=== PATIENT | female | born 1990 | race Caucasian/White ===

== ENCOUNTER 2019-04-11 19:21 | Emergency (ER) | payer OTHER ==
--- OUTSIDE RECORDS SUMMARY | 2019-04-11 19:46 | XMS REPORT | Continuity of Care Document ---
:1990 External Reference #:[id number] Author Name Montserrat Adams MD, PHD Address [address], [address] [place] [address] Care Team Providers Name Role Phone Montserrat Adams MD, PHD Care Team Information Transportation Assistant Unavailable Montserrat Adams MD, PHD Primary Care Physician Unavailable Payers Date Identification Numbers Payment Provider Subscriber Effective: 2009 Policy Number: [id number] [employer] Priscilla Garrett PayID: [id number] [address] [place] [address] Problems Active Problems Provider Date Disease of blood AND/OR blood-forming Iesha Dixon DO Onset: 04/22/2015 organ Multiple joint pain Iesha Dixon DO Onset: 06/07/2015 Obesity Iesha Dixon DO Onset: 06/07/2015 Essential thrombocythemia Greg Vernon M.D. Onset: 02/09/2016 Polycystic ovaries Greg Vernon M.D. Onset: 02/09/2016 Bipolar disorder Jacinta Barrios, PNP-BC, PRECISION MACHINIST, Onset: 07/10/2018 Ibclc Dysuria Montserrat Adams MD, PHD Onset: 08/28/2018 Increased frequency of urination Montserrat Adams MD, PHD Onset: 08/28/2018 Urinary tract infectious disease Montserrat Adams MD, PHD Onset: 11/11/2018 Upper respiratory tract infection due Montserrat Adams MD, PHD Onset: 2018 to Influenza Migraine Montserrat Adams MD, PHD Onset: 01/22/2019 Other migraine, not intractable, Montserrat Adams MD, PHD Onset: 01/22/2019 without status migrainosus Montserrat Adams MD, PHD Onset: 01/22/2019 Family History Date Family Member(s) Observation Comments Father Heart Disease Father 45 Mother 46 Siblings 5 Grandmother Breast Cancer Grandmother Heart Disease Social History Type Date Description Comments Sex Unknown Marital Status Lives With Diet Patient follows no dietary restrictions Occupation Disabled for bipolar disorder Abuse No history of abuse Tobacco Use Start: Unknown Never Smoked Cigarettes ETOH Use Denies alcohol use Recreational Drug Use Denies Drug Use Tobacco Use Start: Unknown Patient has never smoked Smoking Status Reviewed: 03/26/19 Patient has never smoked Enjoy Exercising Patient enjoys exercising Tattoo/Piercing Tattoo arm Tattoo/Piercing Pierced ears Currently Active Patient is currently sexually active Age [address] [place] 18 Years Old # Partners in a Lifetime 1 # Partners in a Lifetime Has been with current partner for 2 years STD's No STD History Allergies, Adverse Reactions, Alerts Active Allergies Reaction Severity Comments Date Advil 08/23/2015 Propranolol 09/19/2018 Medications Active Medications SIG Qnty Indications Ordering Date Provider Famotidine 1 tab by mouth 60tabs Montserrat Adams, 03/13/2019 20mg twice a day as , PHD Tablets needed for stomach pain Magnesium Gluconate 1 tab by mouth 90tabs G43.909 Montserrat Adams, 2018 every day MD PHD 500mg Tablets Co Q-10 Maximum 1 caps by mouth 90caps G43.909 Montserrat Adams, 01/22/2019 Strength every day , PHD 400mg Capsules Vitamin D3 Adult 4 tab by mouth 120units Montserrat Adams, 01/22/2019 Gummies every day , PHD 1000Unit Chewtabs [facility] 2 by mouth every 180units Z33.1 Montserrat Adams, 01/22/2019 Gummy/Dha/Folic day , PHD Acid 0.4-113.5mg Chewtabs Chromium Picolinate 2 tabs by mouth 60tabs E28.2 Montserrat Adams, 2018 Fortified every morning , PHD 200mcg every evening with Tablets 16 oz of water Mucinex 1 tab by mouth 30tabs J06.9 Angie Montserrat, 10/24/2018 600mg twice a day , PHD Tablets ER 12HR congestion take with lots of fluids J11.1 Aspirin Enteric 1 tabs by mouth 90tabs D68.69 Montserrat Adams, 09/19/2018 Coated Adult Low every day after , PHD Strength meals 81mg Tablets DR Teri Garcia 2 inhalation every 60units J45.31 Montserrat Adams, 09/19/2018 day at bedtime , PHD 200-25mcg/Inh Aerosol Excedrin Migraine 1 tab by mouth first 30tabs G43.809 Montserrat Adams, 04/2018 sign of migraine , PHD [phone] Tablets Flonase Allergy 1 spray each nares 1units J45.31 Montserrat Adams, 2017 Relief every day , PHD 50mcg/Act Suspension Ventolin HFA 1-2 puffs every 4 18gm J45.20 Montserrat Adams, 07/10/2018 hours as needed , PHD 108(90Base) mcg/Act Aerosol Ibuprofen 1 tab by mouth three 90tabs M54.5 Jacinta Barrios, 06/19/2018 800mg times a day as PNP-BC, PRECISION MACHINIST, Ibclc Tablets needed G43.109 Aerochamber Plus as directed 1units J45.20 Jacinta Barrios, 07/18/2017 Misc PNP-BC, PRECISION MACHINIST, Ibclc Metformin HCL ER one tab by mouth 3x 90tabs E28.2 Jacinta Barrios, 500mg daily PNP-BC, PRECISION MACHINIST, Ibclc Tablets ER 24HR Prental Vitamin 1 tab po daily Unknown Low Dose Naltrexone one po daily at Unknown bedtime for fertility tx History Medications Amoxicillin 1 tab by mouth 14tabs J01.90 Angie, 02/09/2019 - 875mg twice a day MD Montserrat, Unknown Tablets PHD Aspirin 81 Low Dose 6 tab by mouth 90units G43.909 Angie, 01/22/2019 - first sign of MD Montserrat, 02/09/2019 81mg Chewtabs migraine PHD Vitamin B-6 1 tab by mouth 30tabs G43.909 Angie, 01/22/2019 - 25mg every day MD Montserrat, Unknown Tablets PHD Phentermine HCL 1 by mouth every 30caps E28.2 Angie, 12/22/2018 - 37.5mg day as needed MD Montserrat, 01/22/2019 Capsules hold if ill. PHD Prednisone 1 tab by mouth 5tabs J45.31 Angie, 2018 - 20mg Tablets every day every MD Montserrat, 02/09/2019 morning PHD Azithromycin 2 tabs the first 6tabs J45.31 Angie, 2018 - 250mg day then 1 tab MD Montserrat, 01/22/2019 Tablets daily for 4 more PHD days [facility] 2 by mouth every 180units Angie, 11/20/2018 - Gummy/Dha/Folic Acid day MD Montserrat, 01/22/2019 PHD 0.4-113.5mg Chewtabs Chromium Picolinate 1 tab by mouth 30tabs Angie, 11/20/2018 - every day MD Montserrat, 12/22/2018 500mcg Tablets PHD Vitamin D3 Adult 4 tab by mouth 120units Angie, 11/20/2018 - Gummies every day MD Montserrat, 01/22/2019 1000Unit PHD Chewtabs Augmentin 1 tab by mouth 14tabs N39.0 Angie, 11/11/2018 - 875-125mg twice a day MD Montserrat, 11/20/2018 Tablets PHD Zantac 150 Maximum 1 tab by mouth 60tabs R11.0 Angie, 11/11/2018 - Strength twice a day as MD Montserrat, 2018 150mg Tablets needed PHD Zofran 1 tab by mouth 14tabs R11.0 Angie, 11/11/2018 - 4mg Tablets three times a day MD Montserrat, 2018 as needed for PHD nausea Diflucan 1 tab by mouth as 1tabs R30.0 Angie, 11/06/2018 - 150mg Tablets once MD Montserrat, 11/11/2018 PHD Amoxicillin 1 tab by mouth 14tabs J06.9 Angie, 10/24/2018 - 875mg twice a day MD Montserrat, 11/11/2018 Tablets PHD Mometasone Furoate 2 puffs twice a 1units J45.31 Angie, 09/19/2018 - day MD Montserrat, 09/19/2018 50mcg/Act Suspension PHD Vitamin D 1 tab by mouth 14caps E55.9 Mcgregor, 09/19/2018 - (Ergocalciferol) once a week for 4 MD Montserrat, 01/22/2019 weeks PHD [id number] Capsules Gabapentin 1-2 tab by mouth 60caps M54.5 Mcgregor, 09/11/2018 - 300mg at bedtime MD Montserrat, 01/22/2019 Capsules PHD Cyclobenzaprine HCL 1/2-1 tab by 14tabs M54.5 Angie, 09/11/2018 - mouth at bedtime MD Montserrat, 01/22/2019 10mg Tablets as needed PHD Fluconazole 1 by mouth once 1tabs R30.0 Mcgregor, 08/28/2018 - 150mg can repeat in 1 MD Montserrat, 09/11/2018 Tablets week PHD Amoxicillin 1 tab by mouth 20tabs H66.92 Jacinta Barrios, 07/10/2018 - 500mg twice a day for PNP-BC, PRECISION MACHINIST, 07/20/2018 Tablets 10 days Ibclc Pseudoephedrine HCL take 2 tabs every 90tabs J01.90 Jacinta Barrios, 2017 - 4 hours as needed PNP-BC, PRECISION MACHINIST, 08/28/2018 30mg Tablets Ibclc Montelukast Sodium 1 by mouth every 90tabs J45.20 Jacinta Barrios, 2017 - 10mg day PNP-BC, PRECISION MACHINIST, 08/28/2018 Tablets Ibclc No Active Medications Unknown 03/27/2018 - 03/27/2018 Naproxen 500 mg by mouth 60tabs M54.5 Greg Vernon, 03/27/2018 - 500mg Tablets every 12 hours as M.D. 06/19/2018 needed pain Cyclobenzaprine HCL 1-2 tabs by mouth 30tabs M54.5 Greg Vernon, 2017 - 5mg every night at M.D. 08/28/2018 Tablets bedtime Magnesium Oxide 1 by mouth every 30tabs G43.109 Alyx, 01/23/2018 - 400mg day Jenniferchetek, 03/27/2018 Tablets PRECISION MACHINIST Vitamin B-2 1 by mouth every 100tabs G43.109 Clune, 01/23/2018 - 100mg day Jenniferchetek, 03/27/2018 Tablets PRECISION MACHINIST Hydroxyzine HCL 1-2 tabs by mouth 45tabs F43.0 Clune, 12/27/2017 - 25mg three times a day Jenniferchetek, 03/27/2018 Tablets as needed anxiety PRECISION MACHINIST Ibuprofen 1 tab by mouth 30tabs A08.39 Gerg Vernon, 12/27/2017 - 600mg Tablets every 6 hours as M.D. 03/27/2018 needed Penicillin V 1 tab PO bid x 10 20tabs J02.9 Greg Vernon, 10/18/2017 - Potassium days M.D. 12/27/2017 500mg Tablets Cetirizine HCL 1 by mouth every 30tabs J30.9 Jacinta Barrios, 07/18/2017 - 10mg day PNP-BC, PRECISION MACHINIST, 12/27/2017 Tablets Ibclc Pseudoephedrine HCL 1 tab po q4 hours 60tabs J30.9 Jacinta Barrios, 2016 - as needed for PNP-BC, PRECISION MACHINIST, 12/27/2017 30mg Tablets congestion Ibclc Ventolin HFA 1-2 puffs every 4 8gm J45.20 Jacinta Barrios, 07/18/2017 - hours as needed PNP-BC, PRECISION MACHINIST, 12/27/2017 108(90Base) mcg/Act Ibclc Aerosol Rizatriptan Benzoate 1 tab PO, repeat 14tabs G43.109 Greg Vernon, 2016 - after 2 hours if M.D. 01/23/2018 10mg Tablets significant relief is not attained Sumatriptan Succinate take 1 pill at 14tabs G43.109 Greg Vernon, 2016 - headache onset M.D. 02/12/2017 100mg Tablets and another pill 2 hours later if pain not relieved. max 200mg/day Bupropion HCL ER (SR) 1 by mouth every 30tabs E66.9 Greg Vernon, 2016 - day M.D. 01/18/2017 150mg Tablets ER 12HR Pseudoephedrine HCL 1 tabs by mouth 14tabs R09.81 Greg Vernon, 11/08/2016 - q6 as needed M.D. 12/14/2016 30mg Tablets BD Pen place on flexpen 30units E28.2 Greg Vernon, 11/08/2016 - Needle/Migdalia/Ultra for injection M.D. 06/27/2017 Fine/32G X 4mm once daily. one 32G X 4 time use mm Misc Victoza 0.6mg subq once 18ml E28.2 Greg Vernon, 11/08/2016 - 18mg/3ML daily, can M.D. 12/14/2016 Solution Pen-Inject titrate up as instructed E66.9 No Active Medications Unknown 11/08/2016 - 11/08/2016 [facility] Ranitidine Take One Tablet 60tabs Greg Vernon, 10/30/2016 - 75mg Tablets By Mouth Twice A M.D. 11/08/2016 Day 19 Take 1 Tablet By 90units Greg Vernon, 10/30/2016 - Chewtabs Mouth Every Day M.D. 11/08/2016 Vascepa 2 tab by mouth 120caps Greg Vernon, 09/19/2016 - 1gm Capsules twice a day with M.D. 09/20/2016 meals mdd 4gm/day [place]-3 1 tab by mouth 30caps Greg Vernon, 09/14/2016 - 1400mg Capsules every daily M.D. 09/19/2016 No Active Medications Unknown 07/24/2016 - 07/24/2016 Vitamin D3 1 cap by mouth 8caps Greg Vernon, 07/24/2016 - [id number] Capsules every week x 8 M.D. 09/13/2016 weeks Amoxicillin 1 tab by mouth 20tabs J01.90 Greg Vernon, 05/25/2016 - 500mg Tablets twice a day x 10 M.D. 07/24/2016 days No Active Medications Unknown 02/09/2016 - 05/25/2016 Vitamin D3 1 cap by mouth 8caps E55.9 Greg Vernon, 11/10/2015 - [id number] Capsules every week x 8 M.D. 02/09/2016 weeks Proair HFA 1 puff every 4 1units R07.9 Greg Vernon, 11/10/2015 - 108(90Base) mcg/Act hours as needed M.D. 02/09/2016 Aerosol Naproxen 500 mg by mouth 20tabs Greg Vernon, 11/10/2015 - 500mg Tablets every 12 hours M.D. 11/10/2015 as needed Ranitidine HCL take one tablet 60tabs K21.9 Greg Vernon, 10/26/2015 - 75mg Tablets by mouth twice a M.D. 02/09/2016 day Complete 1 by mouth every 90tabs Greg Vernon, 08/23/2015 - 14-0.4mg day M.D. 10/26/2015 Tablets Proair HFA 1 puff every 4 1units 493.90 Greg Vernon, 06/09/2015 - 108(90Base) mcg/Act hours as needed M.D. 10/26/2015 Aerosol Lovenox 1 injection Unknown - 30mg/0.3ML Solution daily 02/09/2019 Medroxyprogesterone take 1 tablet by Unknown - Acetate mouth once daily 01/22/2019 10mg Tablets for 10 days Levothyroxine Sodium one tab po once Unknown - 75mcg a day 08/28/2018 Tablets Ondansetron HCL as needed Unknown - 4mg Tablets 11/11/2018 Prednisone one tab po twice KilBogdan pastor - 5mg Tablets daily 08/28/2018 Ondansetron HCL 1 tab every 6hr 12tabs Charles - 4mg Tablets as needed for Camille Lund MD 03/27/2018 nausea [facility] Acid Controller Charles, - Maximum Strength Camille Lund MD 01/23/2018 20mg Tablets Phendimetrazine Tartrate take 1 tablet by Unknown - 35mg mouth two times 12/27/2017 Tablets a day . Cyclessa 0ne daily Unknown - 0.1/0.125/0.15 -0.025 mg 12/27/2017 Tablets Spironolactone 1 by mouh twice Unknown - 25mg Tablets a day 12/27/2017 Metformin HCL 1 tab by mouth Unknown - 500mg Tablets Once a day 12/27/2017 Ondansetron HCL as needed for Charles, - 4mg Tablets nausea Camille Lund MD 06/12/2017 Metoclopramide HCL Unknown - 10mg Tablets 11/08/2016 Medroxyprogesterone Juan CarlosShweta maria - Acetate 11/10/2015 10mg Tablets Vitamin D Unknown - 1000Unit Tablets 10/26/2015 Vitamin D Unknown - 2000Unit Capsules 10/26/2015 Clomid 4 tabs on day Greg Vernon, - 50mg Tablets 3-7 of menses M.D. 08/23/2015 Seroquel Unknown - 05/30/2011 Singulair 1 po qd Unknown - 10mg Tablets 04/22/2015 Medications Administered in Office Medication SIG Qnty Indications Ordering Provider Date Injection Ketorolac Montserrat Adams MD, PHD 02/09/2019 Tromethamine 30 MG/mL (Toradol) Injection Injection Ketorolac Montserrat Adams MD, PHD 10/24/2018 Tromethamine 30 MG/mL (Toradol) Injection Immunizations CPT Code Status Date Vaccine Lot # [id number] Given 06/12/2017 Tdap injection [id number] Given 11/03/2009 flu vaccination 25748 Given 11/03/2009 H1N1 Immuniation Adminstration 50560 Given 11/03/2009 H1N1 Immuniation Adminstration [id number] Refused 06/28/2017 Influenza Vaccine (Fluzone) Age 3 And Older Q2038 Refused 07/24/2016 Influenza Vaccine (Fluzone) Age 3 And Older Vital Signs Date Vital Result Comment 03/26/2019 10:01am BP Systolic 149 mmHg BP Diastolic 95 mmHg Body Temperature 97.3 F Heart Rate 97 /min Respiratory Rate 20 /min Height 71 inches 5'11" Weight 254.00 lb BMI (Body Mass Index) 35.4 kg/m2 BSA (Body Surface Area) 2.33 m2 [place] body weight in kilograms 70 kg O2 % BldC Oximetry 95 % 02/09/2019 3:49pm BP Systolic 112 mmHg BP Diastolic 72 mmHg Body Temperature 97.9 F Heart Rate 107 /min Respiratory Rate 18 /min Height 71 inches 5'11" Weight 250.00 lb BMI (Body Mass Index) 34.9 kg/m2 BSA (Body Surface Area) 2.32 m2 [place] body weight in kilograms 70 kg O2 % BldC Oximetry 99 % 01/22/2019 9:29am BP Systolic 109 mmHg BP Diastolic 85 mmHg Body Temperature 96.7 F Heart Rate 91 /min Respiratory Rate 18 /min Height 71 inches 5'11" Weight 246.00 lb BMI (Body Mass Index) 34.3 kg/m2 BSA (Body Surface Area) 2.30 m2 [place] body weight in kilograms 70 kg O2 % BldC Oximetry 96 % 12/22/2018 11:31am BP Systolic 111 mmHg BP Diastolic 81 mmHg Body Temperature 97.3 F Heart Rate 87 /min Respiratory Rate 20 /min Height 71 inches 5'11" Weight 253.00 lb BMI (Body Mass Index) 35.3 kg/m2 BSA (Body Surface Area) 2.33 m2 [place] body weight in kilograms 70 kg O2 % BldC Oximetry 97 % 2018 1:03pm BP Systolic 134 mmHg BP Diastolic 84 mmHg Body Temperature 97.2 F Heart Rate 108 /min Respiratory Rate 20 /min Height 71 inches 5'11" Weight 250.00 lb BMI (Body Mass Index) 34.9 kg/m2 BSA (Body Surface Area) 2.32 m2 [place] body weight in kilograms 70 kg O2 % BldC Oximetry 96 % 11/20/2018 3:09pm BP Systolic 109 mmHg BP Diastolic 78 mmHg Body Temperature 98.0 F Heart Rate 90 /min Respiratory Rate 18 /min Height 71 inches 5'11" Weight 250.00 lb BMI (Body Mass Index) 34.9 kg/m2 BSA (Body Surface Area) 2.32 m2 [place] body weight in kilograms 70 kg O2 % BldC Oximetry 98 % 11/11/2018 8:53am BP Systolic 121 mmHg BP Diastolic 83 mmHg Body Temperature 99.4 F Heart Rate 108 /min Respiratory Rate 20 /min Height 71 inches 5'11" Weight 252.00 lb BMI (Body Mass Index) 35.1 kg/m2 BSA (Body Surface Area) 2.33 m2 [place] body weight in kilograms 70 kg O2 % BldC Oximetry 97 % 10/24/2018 2:44pm BP Systolic 121 mmHg BP Diastolic 85 mmHg Body Temperature 98.2 F Heart Rate 82 /min Respiratory Rate 20 /min Height 71 inches 5'11" Weight 256.00 lb BMI (Body Mass Index) 35.7 kg/m2 BSA (Body Surface Area) 2.34 m2 [place] body weight in kilograms 70 kg O2 % BldC Oximetry 96 % 09/19/2018 11:02am BP Systolic 131 mmHg BP Diastolic 83 mmHg Body Temperature 97.0 F Heart Rate 106 /min Respiratory Rate 18 /min Height 71 inches 5'11" Weight 253.00 lb BMI (Body Mass Index) 35.3 kg/m2 BSA (Body Surface Area) 2.33 m2 [place] body weight in kilograms 70 kg O2 % BldC Oximetry 96 % 09/11/2018 9:17am BP Systolic 131 mmHg BP Diastolic 84 mmHg Body Temperature 97.0 F Heart Rate 103 /min Respiratory Rate 18 /min Height 71 inches 5'11" Weight 252.00 lb BMI (Body Mass Index) 35.1 kg/m2 BSA (Body Surface Area) 2.33 m2 [place] body weight in kilograms 70 kg O2 % BldC Oximetry 96 % 08/28/2018 3:09pm BP Systolic 123 mmHg BP Diastolic 88 mmHg Body Temperature 97.1 F Heart Rate 91 /min Respiratory Rate 18 /min Height 71 inches 5'11" Weight 251.00 lb BMI (Body Mass Index) 35.0 kg/m2 BSA (Body Surface Area) 2.32 m2 [place] body weight in kilograms 70 kg O2 % BldC Oximetry 98 % 07/10/2018 3:10pm BP Systolic Sitting Left Arm 124 mmHg BP Diastolic Sitting Left Arm 62 mmHg Body Temperature 97.9 F Heart Rate 101 /min Weight 251.50 lb O2 % BldC Oximetry 98 % 06/19/2018 11:37am BP Systolic Sitting Right Arm 108 mmHg BP Diastolic Sitting Right Arm 70 mmHg Body Temperature 97.1 F Heart Rate 84 /min Weight 248.25 lb O2 % BldC Oximetry 98 % 03/27/2018 9:29am BP Systolic Sitting Right Arm 112 mmHg BP Diastolic Sitting Right Arm 70 mmHg Body Temperature 97.1 F Heart Rate 94 /min Weight 253.50 lb O2 % BldC Oximetry 97 % 01/23/2018 10:20am BP Systolic Sitting Left Arm 114 mmHg BP Diastolic Sitting Left Arm 72 mmHg Heart Rate 80 /min Respiratory Rate 18 /min Height 71 inches 5'11" Weight 252.00 lb BMI (Body Mass Index) 35.1 kg/m2 BSA (Body Surface Area) 2.33 m2 [place] body weight in kilograms 70 kg 12/27/2017 10:18am BP Systolic Sitting Right Arm 120 mmHg BP Diastolic Sitting Right Arm 72 mmHg Body Temperature 97.1 F Heart Rate 87 /min Weight 250.25 lb O2 % BldC Oximetry 97 % 10/18/2017 1:06pm BP Systolic 112 mmHg BP Diastolic 74 mmHg Body Temperature 97.8 F Heart Rate 116 /min Height 71 inches 5'11" Weight 245.00 lb BMI (Body Mass Index) 34.2 kg/m2 BSA (Body Surface Area) 2.30 m2 [place] body weight in kilograms 70 kg O2 % BldC Oximetry 98 % 07/18/2017 2:19pm BP Systolic 102 mmHg BP Diastolic 68 mmHg Body Temperature 98.2 F Height 71 inches 5'11" Weight 242.00 lb BMI (Body Mass Index) 33.7 kg/m2 BSA (Body Surface Area) 2.29 m2 [place] body weight in kilograms 70 kg O2 % BldC Oximetry 98 % 06/28/2017 9:41am BP Systolic 122 mmHg BP Diastolic 82 mmHg Body Temperature 96.4 F Heart Rate 92 /min Height 71 inches 5'11" Weight 247.00 lb BMI (Body Mass Index) 34.4 kg/m2 BSA (Body Surface Area) 2.31 m2 [place] body weight in kilograms 70 kg O2 % BldC Oximetry 96 % 06/12/2017 11:31am BP Systolic Sitting Left Arm 120 mmHg BP Diastolic Sitting Left Arm 76 mmHg Heart Rate 80 /min Respiratory Rate 20 /min Height 71 inches 5'11" Weight 250.25 lb BMI (Body Mass Index) 34.9 kg/m2 BSA (Body Surface Area) 2.32 m2 [place] body weight in kilograms 70 kg Last Menstrual Period [id number] 04/23/2017 9:41am BP Systolic 111 mmHg BP Diastolic 72 mmHg Body Temperature 96.9 F Heart Rate 95 /min Height 71 inches 5'11" Weight 261.00 lb BMI (Body Mass Index) 36.4 kg/m2 BSA (Body Surface Area) 2.36 m2 [place] body weight in kilograms 70 kg 02/19/2017 8:56am BP Systolic Sitting Left Arm 122 mmHg BP Diastolic Sitting Left Arm 68 mmHg Body Temperature 96.6 F Height 71 inches 5'11" Weight 263.25 lb BMI (Body Mass Index) 36.7 kg/m2 BSA (Body Surface Area) 2.37 m2 01/18/2017 10:02am BP Systolic Sitting Left Arm 116 mmHg BP Diastolic Sitting Left Arm 64 mmHg Body Temperature 97.5 F Height 71 inches 5'11" Weight 262.50 lb BMI (Body Mass Index) 36.6 kg/m2 BSA (Body Surface Area) 2.37 m2 12/14/2016 9:12am BP Systolic Sitting Resting Right Arm 122 mmHg BP Diastolic Sitting Resting Right Arm 90 mmHg Body Temperature 97.4 F Heart Rate 95 /min Respiratory Rate 20 /min Height 71 inches 5'11" Weight 261.00 lb BMI (Body Mass Index) 36.4 kg/m2 BSA (Body Surface Area) 2.36 m2 Last Menstrual Period [id number] O2 % BldC Oximetry 98 % 11/08/2016 3:24pm BP Systolic Sitting Right Arm 126 mmHg BP Diastolic Sitting Right Arm 76 mmHg Body Temperature 98.2 F Height 71 inches 5'11" Weight 255.12 lb BMI (Body Mass Index) 35.6 kg/m2 BSA (Body Surface Area) 2.34 m2 [place] body weight in kilograms 70 kg 09/26/2016 1:09pm Height 69 inches 5'9" Weight 257.00 lb BMI (Body Mass Index) 37.9 kg/m2 BSA (Body Surface Area) 2.30 m2 [place] body weight in kilograms 66 kg 09/13/2016 3:47pm BP Systolic Sitting Right Arm 140 mmHg BP Diastolic Sitting Right Arm 80 mmHg Body Temperature 97.4 F Height 71 inches 5'11" Weight 261.12 lb BMI (Body Mass Index) 36.4 kg/m2 BSA (Body Surface Area) 2.36 m2 [place] body weight in kilograms 70 kg 07/24/2016 9:19am BP Systolic Sitting Left Arm 124 mmHg BP Diastolic Sitting Left Arm 92 mmHg Heart Rate 94 /min Respiratory Rate 20 /min Height 71 inches 5'11" Weight 262.00 lb BMI (Body Mass Index) 36.5 kg/m2 BSA (Body Surface Area) 2.36 m2 [place] body weight in kilograms 70 kg 05/25/2016 9:44am BP Systolic Sitting Left Arm 118 mmHg BP Diastolic Sitting Left Arm 66 mmHg Body Temperature 97.5 F Heart Rate 72 /min Respiratory Rate 20 /min Height 71 inches 5'11", As per patient Weight 258.25 lb BMI (Body Mass Index) 36.0 kg/m2 BSA (Body Surface Area) 2.35 m2 [place] body weight in kilograms 70 kg Last Menstrual Period [id number] 02/09/2016 10:27am BP Systolic Sitting Left Arm 108 mmHg BP Diastolic Sitting Left Arm 66 mmHg Height 69 inches 5'9" Weight 253.00 lb BMI (Body Mass Index) 37.4 kg/m2 BSA (Body Surface Area) 2.28 m2 11/10/2015 10:55am BP Systolic 128 mmHg BP Diastolic 74 mmHg Body Temperature 97.9 F Heart Rate 102 /min Respiratory Rate 22 /min Height 69 inches 5'9" Weight 257.00 lb BMI (Body Mass Index) 37.9 kg/m2 BSA (Body Surface Area) 2.30 m2 Last Menstrual Period [id number] O2 % BldC Oximetry 98 % 10/26/2015 9:21am BP Systolic 114 mmHg BP Diastolic 76 mmHg Body Temperature 97.6 F Height 69 inches 5'9" Weight 256.00 lb BMI (Body Mass Index) 37.8 kg/m2 BSA (Body Surface Area) 2.29 m2 08/23/2015 2:08pm BP Systolic 118 mmHg BP Diastolic 66 mmHg Height 69 inches 5'9" Weight 255.12 lb BMI (Body Mass Index) 37.7 kg/m2 BSA (Body Surface Area) 2.29 m2 08/02/2015 9:35am Height 69 inches 5'9" Weight 252.00 lb BMI (Body Mass Index) 37.2 kg/m2 BSA (Body Surface Area) 2.28 m2 06/09/2015 9:15am BP Systolic 124 mmHg BP Diastolic 76 mmHg Heart Rate 72 /min Respiratory Rate 18 /min Height 69 inches 5'9" Weight 248.00 lb BMI (Body Mass Index) 36.6 kg/m2 BSA (Body Surface Area) 2.26 m2 06/07/2015 8:44am BP Systolic Sitting Left Arm 132 mmHg BP Diastolic Sitting Left Arm 85 mmHg Heart Rate 90 /min Respiratory Rate 18 /min Height 71 inches 5'11" Weight 249.00 lb BMI (Body Mass Index) 34.7 kg/m2 BSA (Body Surface Area) 2.31 m2 05/02/2015 11:47am BP Systolic Sitting Left Arm 124 mmHg BP Diastolic Sitting Left Arm 67 mmHg Body Temperature 97.3 F Heart Rate 99 /min Respiratory Rate 20 /min Weight 248.00 lb O2 % BldC Oximetry 99 % 04/22/2015 1:03pm BP Systolic Sitting Left Arm 128 mmHg BP Diastolic Sitting Left Arm 72 mmHg Body Temperature 97.7 F Heart Rate 89 /min Respiratory Rate 20 /min Height 69.25 inches 5'9.25" Weight 248.00 lb BMI (Body Mass Index) 36.4 kg/m2 BSA (Body Surface Area) 2.27 m2 O2 % BldC Oximetry 97 % 05/30/2011 3:19pm BP Systolic Sitting Left Arm 118 mmHg BP Diastolic Sitting Left Arm 84 mmHg Heart Rate 94 /min Respiratory Rate 16 /min Height 71 inches 5'11" Last Menstrual Period [id number] 02/20/2010 8:47am Height 71 inches 5'11" Weight 213.00 lb BMI (Body Mass Index) 29.7 kg/m2 BSA (Body Surface Area) 2.17 m2 01/29/2008 1:41pm Height 68.5 inches 5'8.50" Weight 217.00 lb Results Test Date Facility Test Result H/L Range Note Laboratory test 11/14/2018 [facility] Rapid Strep POSITIVE Abnormal Negative 1 , [address] [place], [place] [id number] [phone] Urine Dipstick 11/06/2018 [facility] Ua Color Yellow Yellow Ua Clarity Clear Clear Ua Leuko 2+ High Negative Ua Nitrite Negative Negative Ua Urobilinogen Negative Low 0.2 - 1.0 E.U./dL Ua Protein Negative Negative Ua PH 6.0 Low 6.5-7.5 Ua Blood Negative Negative Ua Specific [place] 1.025 1.010-1.030 Ua Ketones Negative Negative Ua Bilirubin Negative Negative Ua Glucose Negative Negative Urine Culture 11/06/2018 [facility] Urine STREP. Abnormal 3, [address] Culture AGALACTIA <[place] [address] NOTE> [phone] Quantity > 100,000 CFU/mL 5 Recommended Therapy: PENICILLIN OR AM <SEE NOTE> 6 Urine Culture MIXED URETHRAL F <SEE NOTE> 7 Quantity 10,000 - 50,000 <SEE NOTE> 8 Ua RFX Micro & Culture 11/06/2018 [facility] Urine Color YELLOW Yellow II [address] [place], [place] [id number] [phone] Urine Clarity SL CLOUDY Clear Urine Glucose - Dipstick NEGATIVE mg/dL Negative Urine Bilirubin - Dipstick NEGATIVE Negative Urine Ketone NEGATIVE mg/dL Negative Urine Specific [place] 1.020 N 1.010-1.030 Urine Blood NEGATIVE Negative Urine PH 6.0 Low 6.5-7.5 Urine Protein - Dipstick NEGATIVE mg/dL Negative Urine Urobilinogen - Dipstick 0.2 E.U./dL N 0.2-1.0 Urine Nitrite - Dipstick NEGATIVE Negative Urine Leuk Esterase SMALL Abnormal Negative Urine RBC 0-2 rbc/hpf 0-2 Urine WBC 2-5 wbc/hpf 0-7 Urine Epithelial Cells FEW /lpf None Seen Urine Bacteria FEW None Seen Strep. Agalactiae (Beta GRP 11/06/2018 [facility] Penicillin G <=0.12 S B) [address] [place] [address] [phone] Tetracycline <=1 S Ampicillin <=0.25 S Moxifloxacin <=0.25 S Levofloxacin 0.5 S Vancomycin <=0.5 S Laboratory test 10/24/2018 [facility] Mumps IgM <0.80 AU 0.00-0.79 9, [address] [place] [address] [phone] Mumps Antibodies, Igg <9.0 AU/mL Low Immune >10.9 11 CBC W/Automated 10/24/2018 [facility] White Blood 10.0 K/uL N 3.1-10.[address] [place] [address] [phone] Red Blood Count 5.63 M/uL High 3.90-5.40 Hemoglobin 14.5 gm/dL N 11.6-15.8 Hematocrit 45.0 % N 36.0-46.1 Mean Cell Volume 79.9 fl Low 80.9-99.0 Mean Corpuscular HGB 25.8 pg Low 25.9-32.7 Mean Corpuscular HGB Conc 32.2 g/dL N 30.8-34.3 Platelet Count 692 K/uL High 155-360 Red Cell Distri Width SD 44.0 fl N 36-47 Red Cell Distri Width %CV 15.3 % High 11.7-14.4 Mean Platelet Volume 9.4 fL N 8.9-12.4 Neut% 62.4 % N 40.4-72.8 Lymph % 27.1 % N 20.0-42.0 Slope % 6.0 % N 4.3-13.2 Eo% 3.7 % N 0.0-6.6 Bas% 0.8 % N 0.0-1.1 Neut# 6.27 K/uL N 1.8-7.0 Lymph # 2.72 K/uL N 1.0-4.0 Slope # 0.60 K/uL N 0.3-0.9 Eos # 0.37 K/uL N 0.0-0.5 Baso # 0.08 K/uL N 0.0-0.1 Comprehensive Metabolic 10/24/2018 [facility] Glucose 84 mg/dL N 74-[address] [place], [place] [id number] [phone] BUN 13 mg/dL N 7-18 Creatinine 0.8 mg/dL N 0.6-1.3 Glom Filtration Rate, Estimate >60 mL/min >60 If >60 mL/min >60 12 BUN/Creat 16.2 ratio Sodium 140 mmol/L N 136-145 Potassium 3.6 mmol/L N 3.5-5.1 Chloride 105 mmol/L N 98-107 Carbon Dioxide 27 mmol/L N 21-32 Anion Gap 8 mEq/L N 8-16 Calcium 8.8 mg/dL N 8.5-10.1 Total Protein 8.3 g/dL High 6.4-8.2 Albumin 3.9 g/dL N 3.4-5.0 Globulin 4.4 g/dL High 1.9-4.3 Alb/Glob 0.9 ratio Bilirubin,Total 0.3 mg/dL N 0.2-1.0 Sgot/Ast 17 U/L N 15-37 SGPT/Alt 26 U/L N 12-78 Alkaline Phosphatase 68 U/L N 45-117 Celiac 10/04/2018 [facility] Immunoglobulin A 395 mg/dL High 87-352 13 Disease Comp [address] [place] [address] [phone] Antigliadin Abs, IgG 3 units 0-19 14 Antigliadin Abs, IgA 5 units 0-19 15 Endomysial IgA Antibody Negative Negative t-Transglutaminase IgA <2 U/mL 0-3 16 t-Transglutaminase IgG <2 U/mL 0-5 17 Vitamin B12 And 10/04/2018 [facility] Vitamin B12 551 pg/mL N 193-[address] [place] [address] [phone] Folic Acid 18.6 ng/mL High 3.1-17.5 Laboratory test 10/04/2018 [facility] Vitamin 34.3 30.0-100.0 [address] D,25-Hydroxy ng/mL [place], [place] [address] [phone] Vitamin B6 5.4 ug/L 2.0-32.8 19 Protime 10/04/2018 [facility] Protime 15.6 seconds High 12.0-14.[address] [place], [place] [id number] [phone] Inr 1.2 High 0.9-1.1 20 Anticoagulant Therapy? NO Comprehensive 10/04/2018 [facility] Anti-Dna <1 IU/mL 0-[address] [place] [address] (Xzifdc) [phone] SM Antibody <0.2 AI 0.0-0.9 [employer] Antibody <0.2 AI 0.0-0.9 Sjogrens Antibodies (Ssa) <0.2 AI 0.0-0.9 Antichromatin Antibodies <0.2 AI 0.0-0.9 Ruby-1 Antibody <0.2 AI 0.0-0.9 Sjogrens Antibodies (SSB) <0.2 AI 0.0-0.9 Centromere B Antibodies < 0.2 AI 0.0-0.9 Scleroderma Antibodies, SCL-70 <0.2 AI 0.0-0.9 See below: (SEE NOTE) 22 Lyme Igm (Reflex 10/04/2018 [facility] Lyme Disease < 0.80 0.00-0.79 23 Western Blot) [address] Antibody,QT,[place] [address] [phone] Laboratory test 10/04/2018 [facility] C-Reactive 9.8 High <3.[address] Protein,Quant mg/L [place], [place] [id number] [phone] Sedimentation 10/04/2018 [facility] Sedimentation 9 mm/hr N 0-[address] [place] [address] [phone] Anticoagulant Therapy? NO CBC W/Automated Diff 10/04/2018 [facility] White Blood 8.4 K/uL N 3.1-10.[address] [place] [address] [phone] Red Blood Count 5.75 M/uL High 3.90-5.40 Hemoglobin 15.0 gm/dL N 11.6-15.8 Hematocrit 46.0 % N 36.0-46.1 Mean Cell Volume 80.0 fl Low 80.9-99.0 Mean Corpuscular HGB 26.1 pg N 25.9-32.7 Mean Corpuscular HGB Conc 32.6 g/dL N 30.8-34.3 Platelet Count 702 K/uL High 155-360 Red Cell Distri Width SD 43.1 fl N 36-47 Red Cell Distri Width %CV 15.0 % High 11.7-14.4 Mean Platelet Volume 9.2 fL N 8.9-12.4 Neut% 62.9 % N 40.4-72.8 Lymph % 28.9 % N 20.0-42.0 [place]ope % 3.8 % Low 4.3-13.2 Eo% 3.6 % N 0.0-6.6 Bas% 0.8 % N 0.0-1.1 Neut# 5.25 K/uL N 1.8-7.0 Lymph # 2.42 K/uL N 1.0-4.0 [place] # 0.32 K/uL N 0.3-0.9 Eos # 0.30 K/uL N 0.0-0.5 Baso # 0.07 K/uL N 0.0-0.1 Anticoagulant Therapy? NO Glycohemoglobin 09/12/2018 [facility] Glycohemoglobin 5.3 % N 4.2-6.3 25, A1c [address] (A1c) 26 [place] [address] [phone] eAG 105 mg/dL Laboratory test 09/12/2018 [facility] C-Reactive 9.6 mg/L High <3.0 finding 134 [facility] Protein,[place] [address] [phone] Comprehensive 09/12/2018 [facility] Glucose 77 mg/dL N 74-106 Metabolic Panel [address] [place] [address] [phone] BUN 10 mg/dL N 7-18 Creatinine 0.7 mg/dL N 0.6-1.3 Glom Filtration Rate, Estimate >60 mL/min >60 If >60 mL/min >60 27 BUN/Creat 14.2 ratio Sodium 141 mmol/L N 136-145 Potassium 4.0 mmol/L N 3.5-5.1 Chloride 105 mmol/L N 98-107 Carbon Dioxide 30 mmol/L N 21-32 Anion Gap 6 mEq/L Low 8-16 Calcium 8.7 mg/dL N 8.5-10.1 Total Protein 8.1 g/dL N 6.4-8.2 Albumin 3.7 g/dL N 3.4-5.0 Globulin 4.4 g/dL High 1.9-4.3 Alb/Glob 0.8 ratio Bilirubin,Total 0.4 mg/dL N 0.2-1.0 Sgot/Ast 15 U/L N 15-37 SGPT/Alt 24 U/L N 12-78 Alkaline Phosphatase 71 U/L N 45-117 Laboratory test 09/12/2018 [facility] Sedimentation Rate 4 mm/hr N 0-20 28 finding [address] [place] [address] [phone] CBC W/Automated 09/12/2018 [facility] White Blood Count 8.6 K/uL N 3.1-10.7 Diff [address] [place] [address] [phone] Red Blood Count 5.63 M/uL High 3.90-5.40 Hemoglobin 14.7 gm/dL N 11.6-15.8 Hematocrit 46.0 % N 36.0-46.1 Mean Cell Volume 81.7 fl N 80.9-99.0 Mean Corpuscular HGB 26.1 pg N 25.9-32.7 Mean Corpuscular HGB Conc 32.0 g/dL N 30.8-34.3 Platelet Count 680 K/uL High 155-360 Red Cell Distri Width SD 45.0 fl N 3-47 Red Cell Distri Width %CV 15.1 % High 11.7-14.4 Mean Platelet Volume 9.3 fL N 8.9-12.4 Neut% 61.3 % N 40.4-72.8 Lymph % 27.9 % N 20.0-42.0 Slope % 5.6 % N 4.3-13.2 Eo% 4.3 % N 0.0-6.6 Bas% 0.9 % N 0.0-1.1 Neut# 5.26 K/uL N 1.8-7.0 Lymph # 2.39 K/uL N 1.0-4.0 Slope # 0.48 K/uL N 0.3-0.9 Eos # 0.37 K/uL N 0.0-0.5 Baso # 0.08 K/uL N 0.0-0.1 Laboratory test 09/12/2018 [facility] Thyroid Stim 2.15 uIU/mL N 0.30-4.[address] [place] [address] [phone] Free T4 0.92 ng/dL N 0.76-1.46 Laboratory test 06/19/2018 [facility] Thyroid Stim 0.49 uIU/mL N 0.30-4.20 [address] [place] [address] [phone] CBC 06/19/2018 [facility] White Blood 10.4 K/uL N 3.1-10.[address] [place] [address] [phone] Red Blood Count 5.44 M/uL High 3.90-5.40 Hemoglobin 14.2 gm/dL N 11.6-15.8 Hematocrit 45.0 % N 36.0-46.1 Mean Cell Volume 82.7 fl N 80.9-99.0 Mean Corpuscular HGB 26.1 pg N 25.9-32.7 Mean Corpuscular HGB Conc 31.6 g/dL N 30.8-34.3 Platelet Count 710 K/uL High 155-360 Red Cell Distri Width %CV 16.9 % High 11.7-14.4 Mean Platelet Volume 9.4 fL N 8.9-12.4 CBS W/Automated 03/27/2018 [facility] White Blood 9.0 K/uL N 3.1-10.7 [address] [place] [address] [phone] Red Blood Count 5.59 M/uL High 3.90-5.40 Hemoglobin 14.5 gm/dL N 11.6-15.8 Hematocrit 45.0 % N 36.0-46.1 Mean Cell Volume 80.5 fl Low 80.9-99.0 Mean Corpuscular HGB 25.9 pg N 25.9-32.7 Mean Corpuscular HGB Conc 32.2 g/dL N 30.8-34.3 Platelet Count 716 K/uL High 155-360 Red Cell Distri Width SD 46.2 fl N 3-47 Red Cell Distri Width %CV 16.0 % High 11.7-14.4 Mean Platelet Volume 9.2 fL N 8.9-12.4 Neut% 61.9 % N 40.4-72.8 Lymph % 28.2 % N 20.0-42.0 [place] % 5.0 % N 4.3-13.2 Eo% 4.2 % N 0.0-6.6 Bas% 0.7 % N 0.0-1.1 Neut# 5.58 K/uL N 1.8-7.0 Lymph # 2.54 K/uL N 1.0-4.0 Sl[place] # 0.45 K/uL N 0.3-0.9 Eos # 0.38 K/uL N 0.0-0.5 Baso # 0.06 K/uL N 0.0-0.1 Ua RFX Micro & Culture 12/25/2017 [facility] Urine Color YELLOW Yellow 31 II [address] [place] [address] [phone] Urine Clarity CLEAR Clear Urine Glucose - Dipstick NEGATIVE mg/dL Negative Urine Bilirubin - Dipstick NEGATIVE Negative Urine Ketone NEGATIVE mg/dL Negative Urine Specific [place] 1.010 N 1.010-1.030 Urine Blood NEGATIVE Negative Urine PH 7.0 N 6.5-7.5 Urine Protein - Dipstick NEGATIVE mg/dL Negative Urine Urobilinogen - Dipstick 0.2 E.U./dL N 0.2-1.0 Urine Nitrite - Dipstick NEGATIVE Negative Urine Leuk Esterase NEGATIVE Negative Source: URINE, CLEAN CAT <SEE NOTE> 32 Throat Culture 10/18/2017 [facility] Throat Culture NORMAL 33, [address] [place] [address] <SEE NOTE> [phone] CBS 10/18/2017 [facility] White Blood 9.6 K/uL N 3.1-10 W/Automated [address] Count .7 [place] [address] [phone] Red Blood Count 5.54 M/uL High 3.90-5.40 Hemoglobin 14.6 gm/dL N 11.6-15.8 Hematocrit 44.6 % N 36.0-46.1 Mean Cell Volume 80.5 fl Low 80.9-99.0 Mean Corpuscular HGB 26.4 pg N 25.9-32.7 Mean Corpuscular HGB Conc 32.7 g/dL N 30.8-34.3 Platelet Count 728 K/uL High 155-360 Red Cell Distri Width SD 44.6 fl N 3-47 Red Cell Distri Width %CV 15.3 % High 11.7-14.4 Mean Platelet Volume 9.2 fL N 8.9-12.4 Neut% 63.8 % N 40.4-72.8 Lymph % 27.7 % N 20.0-42.0 [place] % 4.5 % N 4.3-13.2 Eo% 3.4 % N 0.0-6.6 Bas% 0.6 % N 0.0-1.1 Neut# 6.12 K/uL N 1.8-7.0 Lymph # 2.66 K/uL N 1.0-4.0 Slope # 0.43 K/uL N 0.3-0.9 Eos # 0.33 K/uL N 0.0-0.5 Baso # 0.06 K/uL N 0.0-0.1 CBS W/Automated Diff 06/28/2017 [facility] White Blood 7.9 K/uL N 3.1-10.[address] [place] [address] [phone] Red Blood Count 5.45 M/uL High 3.90-5.40 Hemoglobin 14.5 gm/dL N 11.6-15.8 Hematocrit 43.8 % N 36.0-46.1 Mean Cell Volume 80.4 fl Low 80.9-99.0 Mean Corpuscular HGB 26.6 pg N 25.9-32.7 Mean Corpuscular HGB Conc 33.1 g/dL N 30.8-34.3 Platelet Count 654 K/uL High 150-400 Red Cell Distri Width SD 45.7 fl N 3-47 Red Cell Distri Width %CV 15.8 % High 11.7-14.4 Mean Platelet Volume 9.7 fL N 8.9-12.4 Neut% 58.7 % N 40.4-72.8 Lymph % 31.6 % N 20.0-42.0 Slope % 6.0 % N 4.3-13.2 Eo% 2.8 % N 0.0-6.6 Bas% 0.9 % N 0.0-1.1 Neut# 4.64 K/uL N 1.8-7.0 Lymph # 2.49 K/uL N 1.0-4.0 Slope # 0.47 K/uL N 0.3-0.9 Eos # 0.22 K/uL N 0.0-0.5 Baso # 0.07 K/uL N 0.0-0.1 CBS W/Automated 06/12/2017 [facility] White Blood 9.3 K/uL N 3.1-10.7 [address] [place] [address] [phone] Red Blood Count 5.43 M/uL High 3.90-5.40 Hemoglobin 14.1 gm/dL N 11.6-15.8 Hematocrit 43.0 % N 36.0-46.1 Mean Cell Volume 79.2 fl Low 80.9-99.0 Mean Corpuscular HGB 26.0 pg N 25.9-32.7 Mean Corpuscular HGB Conc 32.8 g/dL N 30.8-34.3 Platelet Count 777 K/uL High 150-400 Red Cell Distri Width SD 44.5 fl N 3-47 Red Cell Distri Width %CV 15.6 % High 11.7-14.4 Mean Platelet Volume 9.7 fL N 8.9-12.4 Neut% 64.8 % N 40.4-72.8 Lymph % 25.8 % N 20.0-42.0 Slope % 6.1 % N 4.3-13.2 Eo% 2.3 % N 0.0-6.6 Bas% 1.0 % N 0.0-1.1 Neut# 6.04 K/uL N 1.8-7.0 Lymph # 2.40 K/uL N 1.0-4.0 [place] # 0.57 K/uL N 0.3-0.9 Eos # 0.21 K/uL N 0.0-0.5 Baso # 0.09 K/uL N 0.0-0.1 Differential-WBC Confirm 04/23/2017 [facility] Total Cells 100 #CELLS [address] [place] [address] [phone] Band% 5 % N 0-8 Neutrophils% 58 % N 33-73 Lymph% 26 % N 20-42 Atypical Lymph% 1 % N 0-7 Monocyte% 2 % N 0-10 Eosinophil% 8 % High 0-5 Platelet Estimate MARKED INCREASE 36 Polychromasia 0-1+ Anisocytosis 1+ Microcytosis 0-1+ Toxic Granulation 0-1+ Slide Review 04/23/2017 [facility] Slide Review DIFF ORDERED [address] [place] [address] [phone] CBS 04/23/2017 [facility] White Blood 11.0 K/uL High 3.1-10. W/Automated [address] Count 7 [place] [address] [phone] Red Blood Count 5.56 M/uL High 3.90-5.40 Hemoglobin 14.8 gm/dL N 11.6-15.8 Hematocrit 44.7 % N 36.0-46.1 Mean Cell Volume 80.4 fl Low 80.9-99.0 Mean Corpuscular HGB 26.6 pg N 25.9-32.7 Mean Corpuscular HGB Conc 33.1 g/dL N 30.8-34.3 Platelet Count 624 K/uL High 150-400 Red Cell Distri Width SD 45.9 fl N 3-47 Red Cell Distri Width %CV 15.9 % High 11.7-14.4 Mean Platelet Volume 9.8 fL N 8.9-12.4 37 Neut# 7.06 K/uL High 1.8-7.0 Lymph # 3.07 K/uL N 1.0-4.0 Slope # 0.36 K/uL N 0.3-0.9 Eos # 0.43 K/uL N 0.0-0.5 Baso # 0.06 K/uL N 0.0-0.1 CBS W/Automated 02/19/2017 [facility] White Blood 9.8 K/uL N 3.1-10.7 [address] [place] [address] [phone] Red Blood Count 5.62 M/uL High 3.90-5.40 Hemoglobin 14.8 gm/dL N 11.6-15.8 Hematocrit 45.4 % N 36.0-46.1 Mean Cell Volume 80.8 fl Low 80.9-99.0 Mean Corpuscular HGB 26.3 pg N 25.9-32.7 Mean Corpuscular HGB Conc 32.6 g/dL N 30.8-34.3 Platelet Count 690 K/uL High 150-400 Red Cell Distri Width SD 46.8 fl N 3-47 Red Cell Distri Width %CV 16.0 % High 11.7-14.4 Mean Platelet Volume 9.4 fL N 8.9-12.4 Neut% 60.4 % N 40.4-72.8 Lymph % 29.3 % N 20.0-42.0 Slope % 5.7 % N 4.3-13.2 Eo% 3.8 % N 0.0-6.6 Bas% 0.8 % N 0.0-1.1 Neut# 5.93 K/uL N 1.8-7.0 Lymph # 2.87 K/uL N 1.0-4.0 Slope # 0.56 K/uL N 0.3-0.9 Eos # 0.37 K/uL N 0.0-0.5 Baso # 0.08 K/uL N 0.0-0.1 CBS W/Automated 01/18/2017 [facility] White Blood 10.6 K/uL N 3.1-10.7 [address] [place] [address] [phone] Red Blood Count 5.73 M/uL High 3.90-5.40 Hemoglobin 14.8 gm/dL N 11.6-15.8 Hematocrit 46.2 % High 36.0-46.1 Mean Cell Volume 80.6 fl Low 80.9-99.0 Mean Corpuscular HGB 25.8 pg Low 25.9-32.7 Mean Corpuscular HGB Conc 32.0 g/dL N 30.8-34.3 Platelet Count 737 K/uL High 150-400 Red Cell Distri Width SD 46.9 fl N 3-47 Red Cell Distri Width %CV 16.0 % High 11.7-14.4 Mean Platelet Volume 9.6 fL N 8.9-12.4 Neut% 64.8 % N 40.4-72.8 Lymph % 27.0 % N 20.0-42.0 Slope % 3.8 % Low 4.3-13.2 Eo% 3.6 % N 0.0-6.6 Bas% 0.8 % N 0.0-1.1 Neut# 6.88 K/uL N 1.8-7.0 Lymph # 2.87 K/uL N 1.0-4.0 Slope # 0.40 K/uL N 0.3-0.9 Eos # 0.38 K/uL N 0.0-0.5 Baso # 0.08 K/uL N 0.0-0.1 Ua RFX Micro & Culture 01/16/2017 [facility] Urine Color YELLOW Yellow [address] [place] [address] [phone] Urine Clarity CLEAR Clear Urine Glucose - Dipstick NEGATIVE mg/dL Negative Urine Bilirubin - Dipstick NEGATIVE Negative Urine Ketone NEGATIVE mg/dL Negative Urine Specific [place] >=1.030 N 1.010-1.030 Urine Blood NEGATIVE Negative Urine PH 5.5 Low 6.5-7.5 Urine Protein - Dipstick NEGATIVE mg/dL Negative Urine Urobilinogen - Dipstick 0.2 E.U./dL N 0.2-1.0 Urine Nitrite - Dipstick NEGATIVE Negative Urine Leuk Esterase NEGATIVE Negative Source: URINE, CLEAN CAT <SEE NOTE> 41 Urine HCG 01/16/2017 [facility] Urine HCG NEGATIVE Negative 42 (Qualitative) [address] (Qualitative) [place] [address] [phone] Source: URINE, CLEAN CAT <SEE NOTE> 43 LDL Cholesterol 09/13/2016 [facility] Cholesterol 137 mg/dL N <200 44, [address] [place] [address] [phone] Triglycerides 234 mg/dL High <150 46 HDL Cholesterol 23 mg/dL Low >40 47 LDL-Cholesterol 67 mg/dL N < 100 48 Comprehensive Metabolic 09/13/2016 [facility] Glucose 83 mg/dL N 74-[address] [place] [address] [phone] BUN 7 mg/dL N 7-18 Creatinine 0.6 mg/dL N 0.6-1.3 Glom Filtration Rate, Estimate >60 mL/min N >60 If >60 mL/min N >60 49 BUN/Creat 11.6 ratio N Sodium 143 mmol/L N 136-145 Potassium 3.7 mmol/L N 3.5-5.1 Chloride 107 mmol/L N 98-107 Carbon Dioxide 30 mmol/L N 21-32 Anion Gap 6 mEq/L Low 8-16 Calcium 8.9 mg/dL N 8.5-10.1 Total Protein 7.4 g/dL N 6.4-8.2 Albumin 3.5 g/dL N 3.4-5.0 Globulin 3.9 g/dL N 1.9-4.3 Alb/Glob 0.9 ratio N Bilirubin,Total 0.3 mg/dL N 0.2-1.0 Sgot/Ast 21 U/L N 15-37 SGPT/Alt 28 U/L N 12-78 Alkaline Phosphatase 65 U/L N 45-117 CBS W/Automated 07/30/2016 [facility] [address] White Blood 9.6 K/uL N 3.1- 10.7 [address] [place] [address] [phone] Red Blood Count 5.40 M/uL N 3.90-5.40 Hemoglobin 14.2 gm/dL N 11.6-15.8 Hematocrit 43.9 % N 36.0-46.1 Mean Cell Volume 81.3 fl N 80.9-99.0 Mean Corpuscular HGB 26.3 pg N 25.9-32.7 Mean Corpuscular HGB Conc 32.3 g/dL N 30.8-34.3 Platelet Count 639 K/uL High 155-360 Red Cell Distri Width SD 45.0 fl N 3-47 Red Cell Distri Width %CV 15.3 % High 11.7-14.4 Mean Platelet Volume 9.4 fL N 8.9-12.4 Neut% 61.0 % N 40.4-72.8 Lymph % 29.5 % N 17.0-46.1 Slope % 4.9 % N 4.3-13.2 Eo% 3.9 % N 0.0-6.6 Bas% 0.7 % N 0.0-1.1 Neut# 5.88 K/uL N 1.8-7.0 Lymph # 2.84 K/uL N 1.8-7.0 Slope # 0.47 K/uL N 0.3-0.9 Eos # 0.38 K/uL N 0.0-0.5 Baso # 0.07 K/uL N 0.0-0.1 @[facility] Pat Id: [id number] @[facility] Req #: [id number] CBS W/Automated Diff 07/24/2016 [facility] White Blood 9.8 K/uL N 3.1-10.[address] [place] [address] [phone] Red Blood Count 5.48 M/uL High 3.90-5.40 Hemoglobin 14.5 gm/dL N 11.6-15.8 Hematocrit 44.8 % N 36.0-46.1 Mean Cell Volume 81.8 fl N 80.9-99.0 Mean Corpuscular HGB 26.5 pg N 25.9-32.7 Mean Corpuscular HGB Conc 32.4 g/dL N 30.8-34.3 Platelet Count 626 K/uL High 155-360 Red Cell Distri Width SD 46.1 fl N 3-47 Red Cell Distri Width %CV 15.5 % High 11.7-14.4 Mean Platelet Volume 9.6 fL N 8.9-12.4 Neut% 60.5 % N 40.4-72.8 Lymph % 28.6 % N 17.0-46.1 Slope % 6.5 % N 4.3-13.2 Eo% 3.9 % N 0.0-6.6 Bas% 0.5 % N 0.0-1.1 Neut# 5.91 K/uL N 1.8-7.0 Lymph # 2.80 K/uL N 1.8-7.0 Slope # 0.64 K/uL N 0.3-0.9 Eos # 0.38 K/uL N 0.0-0.5 Baso # 0.05 K/uL N 0.0-0.1 @[facility] Pat Id: [id number] @[facility] Req #: [id number] CBC W/Automated Diff 02/09/2016 [facility] White Blood 9.1 K/uL 3.1-10.[address] [place] [address] [phone] Red Blood Count 5.66 M/uL High 3.90-5.40 Hemoglobin 14.7 gm/dL 11.6-15.8 Hematocrit 45.4 % 36.0-46.1 Mean Cell Volume 80.2 fl Low 80.9-99.0 Mean Corpuscular HGB 26.0 pg 25.9-32.7 Mean Corpuscular HGB Conc 32.4 g/dL 30.8-34.3 Platelet Count 684 K/uL High 155-360 Red Cell Distri Width SD 44.2 fl 3-47 Red Cell Distri Width %CV 15.4 % High 11.7-14.4 Mean Platelet Volume 9.6 fL 8.9-12.4 Neut% 58.9 % 40.4-72.8 Lymph % 31.0 % 17.0-46.1 Slope % 5.9 % 4.3-13.2 Eo% 3.4 % 0.0-6.6 Bas% 0.8 % 0.0-1.1 Neut# 5.36 K/uL 1.8-7.0 Lymph # 2.82 K/uL 1.8-7.0 Slope # 0.54 K/uL 0.3-0.9 Eos # 0.31 K/uL 0.0-0.5 Baso # 0.07 K/uL 0.0-0.1 Laboratory test 10/26/2015 [facility] Ua RFX Micro + See Note 51 finding [address] Culture II [place], [place] [id number] [phone] Urinalysis With 10/26/2015 [facility] Urine Color YELLOW Yellow Microscopic [address] [place], [place] [id number] [phone] Urine Clarity SL CLOUDY Clear Urine Glucose - Dipstick NEGATIVE mg/dL Negative Urine Bilirubin - Dipstick NEGATIVE Negative Urine Ketone NEGATIVE mg/dL Negative Urine Specific [place] 1.020 1.010-1.030 Urine Blood NEGATIVE Negative Urine PH 6.0 Low 6.5-7.5 Urine Protein - Dipstick NEGATIVE mg/dL Negative Urine Urobilinogen - Dipstick 0.2 E.U./dL 0.2-1.0 Urine Nitrite - Dipstick NEGATIVE Negative Urine Leuk Esterase TRACE High Negative Urine RBC NONE SEEN rbc/hpf 0-2 Urine WBC 5-10 wbc/hpf 0-7 Urine Epithelial Cells MANY NONESEEN/lpf 52 Urine Bacteria VERY FEW NONESEEN Laboratory test 10/26/2015 [facility] TSH Reflex 2.00 uIU/mL 0.36-3.74 53 finding [address] [facility] FT4 and/[place] [address] FT3 [phone] Vitamin D,25-Hydroxy 23.1 ng/mL Low 30.0-100.0 54, 55 Comprehensive Metabolic 10/26/2015 [facility] Glucose 97 mg/dL 74-106 Panel 134 [place], [place] [id number] [phone] BUN 10 mg/dL 7-18 Creatinine 0.8 mg/dL 0.6-1.3 Glom Filtration Rate, Estimate >60 mL/min >60 If >60 mL/min >60 56 BUN/Creat 12.5 ratio Sodium 138 mmol/L 136-145 Potassium 3.9 mmol/L 3.5-5.1 Chloride 103 mmol/L 98-107 Carbon Dioxide 27 mmol/L 21-32 Anion Gap 8 mEq/L 8-16 Calcium 8.9 mg/dL 8.5-10.1 Total Protein 8.2 g/dL 6.4-8.2 Albumin 3.7 g/dL 3.4-5.0 Globulin 4.5 g/dL High 1.9-4.3 Alb/Glob 0.8 ratio Bilirubin,Total 0.3 mg/dL 0.2-1.0 Sgot/Ast 20 U/L 15-37 SGPT/Alt 29 U/L 12-78 Alkaline Phosphatase 75 U/L 45-117 CBS W/Automated 10/26/2015 [facility] White Blood 10.2 K/uL 3.1-10.[address] [place] [address] [phone] Red Blood Count 5.73 M/uL High 3.90-5.40 Hemoglobin 15.1 gm/dL 11.6-15.8 Hematocrit 46.3 % High 36.0-46.1 Mean Cell Volume 80.8 fl Low 80.9-99.0 Mean Corpuscular HGB 26.4 pg 25.9-32.7 Mean Corpuscular HGB Conc 32.6 g/dL 30.8-34.3 Platelet Count 738 K/uL High 155-360 Red Cell Distri Width SD 45.2 fl 3-47 Red Cell Distri Width %CV 15.5 % High 11.7-14.4 Mean Platelet Volume 9.5 fL 8.9-12.4 Neut% 60.9 % 40.4-72.8 Lymph % 29.1 % 17.0-46.1 Slope % 5.9 % 4.3-13.2 Eo% 3.2 % 0.0-6.6 Bas% 0.9 % 0.0-1.1 Neut# 6.19 K/uL 1.8-7.0 Lymph # 2.95 K/uL 1.8-7.0 Slope # 0.60 K/uL 0.3-0.9 Eos # 0.32 K/uL 0.0-0.5 Baso # 0.09 K/uL 0.0-0.1 Glycohemoglobin A1c 10/26/2015 [facility] Glycohemoglobin 5.4 % 4.2-6.[address] (A1c) [place] [address] [phone] eAG 108 mg/dL Laboratory test 10/26/2015 [facility] Urine Culture See Note [address] [place] [address] [phone] CBS W/Automated 08/23/2015 [facility] White Blood 11.0 K/uL High 3.1-[address] Count .7 [place], [place] [id number] [phone] Red Blood Count 5.51 M/uL High 3.90-5.40 Hemoglobin 14.4 gm/dL 11.6-15.8 Hematocrit 44.4 % 36.0-46.1 Mean Cell Volume 80.6 fl Low 80.9-99.0 Mean Corpuscular HGB 26.1 pg 25.9-32.7 Mean Corpuscular HGB Conc 32.4 g/dL 30.8-34.3 Platelet Count 770 K/uL High 155-360 Red Cell Distri Width SD 44.6 fl 3-47 Red Cell Distri Width %CV 15.3 % High 11.7-14.4 Mean Platelet Volume 9.5 fL 8.9-12.4 Neut% 61.8 % 40.4-72.8 Lymph % 28.2 % 17.0-46.1 Slope % 6.3 % 4.3-13.2 Eo% 3.2 % 0.0-6.6 Bas% 0.5 % 0.0-1.1 Neut# 6.82 K/uL 1.0-7.0 Lymph # 3.11 K/uL 1.8-7.0 Slope # 0.69 K/uL 0.3-0.9 Eos # 0.35 K/uL 0.0-0.5 Baso # 0.05 K/uL 0.0-0.1 Laboratory test 06/07/2015 [facility] Anti-Nuclear Negative Negative [address] Antibodies AU/[place] [address] Direct [phone] CBC/Manual 06/07/2015 [facility] White Blood 11.1 K/uL High 3.1-10.[address] Count [place] [id number] [phone] Red Blood Count 5.28 M/uL 3.90-5.40 Hemoglobin 14.0 gm/dL 11.6-15.8 Hematocrit 42.5 % 36.0-46.1 Mean Cell Volume 80.5 fl Low 80.9-99.0 Mean Corpuscular HGB 26.5 pg 25.9-32.7 Mean Corpuscular HGB Conc 32.9 g/dL 30.8-34.3 Platelet Count 739 K/uL High 155-360 Red Cell Distri Width %CV 15.2 % High 11.7-14.4 Mean Platelet Volume 9.6 fL 8.9-12.4 Total Cells Counted 100 #CELLS Neutrophils% 64 % 33-73 Lymph% 31 % 17-56 Platelet Estimate MARKED INCREASE Band% 3 % 0-8 Atypical Lymph% 1 % 0-7 Eosinophil% 1 % 0-5 Microcytosis 0-1+ Laboratory test 06/07/2015 [facility] Sedimentation 18 mm/hr 0-[address] [place] [address] [phone] Comprehensive 06/07/2015 [facility] Glucose 86 mg/dL 74-106 Metabolic Panel [address] [place] [address] [phone] BUN 10 mg/dL 7-18 Creatinine 0.9 mg/dL 0.6-1.3 Glom Filtration Rate, Estimate >60 mL/min >60 If >60 mL/min >60 60 BUN/Creat 11.1 ratio Sodium 139 mmol/L 136-145 Potassium 3.5 mmol/L 3.5-5.1 Chloride 105 mmol/L 98-107 Carbon Dioxide 28 mmol/L 21-32 Anion Gap 6 mEq/L Low 8-16 Calcium 8.9 mg/dL 8.5-10.1 Total Protein 8.2 g/dL 6.4-8.2 Albumin 3.6 g/dL 3.4-5.0 Globulin 4.6 g/dL High 1.9-4.3 Alb/Glob 0.8 ratio Bilirubin,Total 0.3 mg/dL 0.2-1.0 Sgot/Ast 19 U/L 15-37 SGPT/Alt 33 U/L 12-78 Alkaline Phosphatase 66 U/L 45-117 CBC/Manual 05/30/2015 [facility] White Blood 10.0 K/uL 3.1-10.[address] [place] [address] [phone] Red Blood Count 5.10 M/uL 3.90-5.40 Hemoglobin 13.8 gm/dL 11.6-15.8 Hematocrit 42.1 % 36.0-46.1 Mean Cell Volume 82.5 fl 80.9-99.0 Mean Corpuscular HGB 27.1 pg 25.9-32.7 Mean Corpuscular HGB Conc 32.8 g/dL 30.8-34.3 Platelet Count 734 K/uL High 155-360 Red Cell Distri Width %CV 15.7 % High 11.7-14.4 Mean Platelet Volume 9.8 fL 8.9-12.4 Total Cells Counted 100 #CELLS Neutrophils% 64 % 33-73 Lymph% 29 % 17-56 Platelet Estimate MARKED INCREASE Band% 3 % 0-8 Monocyte% 3 % 0-10 Eosinophil% 1 % 0-5 RBC Morphology NORMAL Laboratory test 05/30/2015 [facility] C-Reactive 12.9 mg/L <3.[address] Protein,Quant [place], [place] [id number] [phone] LDH 177 U/L 84-246 Uric Acid 5.3 mg/dL 2.6-6.0 Immunoglobulins 05/30/2015 [facility] Immunoglobulin [phone] A/G/M, QN, Ser [address] G,Quant,Serum mg/[place] [address] [phone] Immunoglobulin A 375 mg/dL 91-414 Immunoglobulin M 123 mg/dL 40-230 61 Comprehensive Metabolic 05/30/2015 [facility] Glucose 76 mg/dL 74-[address] [place], [place] [id number] [phone] BUN 9 mg/dL 7-18 Creatinine 0.7 mg/dL 0.6-1.3 Glom Filtration Rate, Estimate >60 mL/min >60 If >60 mL/min >60 62 BUN/Creat 12.8 ratio Sodium 139 mmol/L 136-145 Potassium 3.5 mmol/L 3.5-5.1 Chloride 104 mmol/L 98-107 Carbon Dioxide 29 mmol/L 21-32 Anion Gap 6 mEq/L Low 8-16 Calcium 8.3 mg/dL Low 8.5-10.1 Total Protein 8.0 g/dL 6.4-8.2 Albumin 3.4 g/dL 3.4-5.0 Globulin 4.6 g/dL High 1.9-4.3 Alb/Glob 0.7 ratio Bilirubin,Total 0.4 mg/dL 0.2-1.0 Sgot/Ast 16 U/L 15-37 SGPT/Alt 21 U/L 12-78 Alkaline Phosphatase 69 U/L 45-117 Immunoglobulins 04/22/2015 [facility] Immunoglobulin [phone] A/G/M, QN, Ser [address] G,Quant,Serum mg/[place] [address] [phone] Immunoglobulin A 410 mg/dL 91-414 Immunoglobulin M 131 mg/dL 40-230 Laboratory test finding 04/22/2015 [facility] Ferritin 52 ng/mL 8-252 [address] [place] [address] [phone] Iron-Tibc-%Sat 04/22/2015 [facility] Serum Iron 83 g/dL 50-170 [address] [place] [address] [phone] Total Iron Binding Capacity 325 g/dL 250-450 Transferrin %Saturation 26 % 12-57 Comprehensive Metabolic 04/22/2015 [facility] Glucose 81 mg/dL 74-106 Panel [address] [place], [place] [id number] [phone] BUN 9 mg/dL 7-18 Creatinine 0.7 mg/dL 0.6-1.3 Glom Filtration Rate, Estimate >60 mL/min >60 If >60 mL/min >60 63 BUN/Creat 12.8 ratio Sodium 140 mmol/L 136-145 Potassium 3.6 mmol/L 3.5-5.1 Chloride 104 mmol/L 98-107 Carbon Dioxide 32 mmol/L 21-32 Anion Gap 4 mEq/L Low 8-16 Calcium 9.6 mg/dL 8.5-10.1 Total Protein 8.5 g/dL High 6.4-8.2 Albumin 4.0 g/dL 3.4-5.0 Globulin 4.5 g/dL High 1.9-4.3 Alb/Glob 0.9 ratio Bilirubin,Total 0.4 mg/dL 0.2-1.0 Sgot/Ast 15 U/L 15-37 SGPT/Alt 25 U/L 12-78 Alkaline Phosphatase 76 U/L 45-117 Laboratory test 04/22/2015 [facility] C-Reactive 9.48 mg/L <3.[address] Protein,Cardiac [place], [place] [id number] [phone] Sedimentation Rate 5 mm/hr 0-20 Jak2 V617F Mutation 04/22/2015 [facility] Jak2 V617F mutation See Note [address] [place] [address] [phone] Director Review See Note 65 Background See Note 66 CBC/Manual 04/22/2015 [facility] White Blood 9.9 K/uL 3.1-10.[address] [place] [address] [phone] Red Blood Count 5.59 M/uL High 3.90-5.40 Hemoglobin 14.9 gm/dL 11.6-15.8 Hematocrit 45.5 % 36.0-46.1 Mean Cell Volume 81.4 fl 80.9-99.0 Mean Corpuscular HGB 26.7 pg 25.9-32.7 Mean Corpuscular HGB Conc 32.7 g/dL 30.8-34.3 Platelet Count 693 K/uL High 155-360 Red Cell Distri Width %CV 15.1 % High 11.7-14.4 Mean Platelet Volume 9.4 fL 8.9-12.4 Total Cells Counted 100 #CELLS Neutrophils% 41 % 33-73 Lymph% 42 % 17-56 Platelet Estimate MARKED INCREASE Band% 7 % 0-8 Atypical Lymph% 1 % 0-7 Monocyte% 3 % 0-10 Eosinophil% 5 % 0-5 Basophil% 1 % 0-2 Anisocytosis 1+ Toxic Granulation 0-1+ Differential Comment See Note 67 1 BODY ACHES, SORE THROAT 2 Method: BD Veritor Chromatographic immunoassay 3 R30.0 4 STREP. AGALACTIAE (BETA GRP B) 5 > 100,000 CFU/mL 6 PENICILLIN OR AMPICILLIN. 7 MIXED URETHRAL MANDIE 8 10,000 - 50,000 CFU/mL 9 J06.9, K11.21 10 Negative < 0.80 Borderline 0.80 - 1.20 Positive > 1.20 Note: The presence of IgM specific antibody should be interpreted in conjunction with the patient's clinical history and exposure risk when an acute infection is suspected. Performed at: RN - [facility] [address] [id number] Floor Coverer: Betsy Reynolds MD, Phone: [phone] Performed at: - [facility] [id number] Floor Coverer: Abraham Jesus MD, Phone: [phone] 11 Negative <9.0 Equivocal 9.0 - 10.9 Positive >10.9 A positive result generally indicates past exposure to Mumps virus or previous vaccination. 12 Note: Persistent reduction for 3 months or more in an eGFR <60 mL/min/1.73 m2 defines CKD. Patients with eGFR values >/=60 mL/min/1.73 m2 may also have CKD if evidence of persistent proteinuria is present. The original MDRD equation for estimated GFR is not valid for patients less than 18 years of age. Additional information may be found at www.kdoqi.org. 13 E03.9, R53.83, D68.69, E55.9, D75.9, E66.9 14 Negative 0 - 19 Weak Positive 20 - 30 Moderate to Strong Positive >30 15 Negative 0 - 19 Weak Positive 20 - 30 Moderate to Strong Positive >30 16 Negative 0 - 3 Weak Positive 4 - 10 Positive >10 Tissue Transglutaminase (tTG) has been identified as the endomysial antigen. Studies have demonstr- ated that endomysial IgA antibodies have over 99% specificity for gluten sensitive enteropathy. 17 Negative 0 - 5 Weak Positive 6 - 9 Positive >9 18 Vitamin D deficiency has been defined by the [place] [employer] and an Endocrine Society practice guideline as a level of serum 25-OH vitamin D less than 20 ng/mL (1,2). The Endocrine Society went on to further define vitamin D insufficiency as a level between 21 and 29 ng/mL (2). 1. IOM ([place] [employer]). 2010. Dietary reference intakes for calcium and D. [place]: The National Academies Press. 2. Michael MF, Mary [place], John-Carl NAJERA, et al. Evaluation, treatment, and prevention of vitamin D deficiency: an Endocrine Society clinical practice guideline. JCEM. 2010; 96(7):1911-30. Performed at: - [facility] [id number] Floor Coverer: Betsy Reynolds MD, Phone: [phone] 19 This test was developed and its performance characteristics determined by [facility]. It has not been cleared or approved by the Food and Drug Administration. Performed at: [facility] [address], [place], [place] [id number] Floor Coverer: Abraham Jesus MD, Phone: [phone] 20 THERAPEUTIC INR RANGE: 2.0 - 3.0 DVT, Pulmonary embolus, prophylaxis against venous thrombosis or systemic embolization in high risk patients. 2.5 - 3.5 Mechanical heart valves 21 Negative <5 Equivocal 5 - 9 Positive >9 22 Autoantibody Disease Association Condition Frequency --------- Antinuclear Antibody, SLE, mixed connective Direct (SUN-D) tissue diseases --------- dsDNA SLE 40 - 60% --------- Chromatin Drug induced SLE 90% SLE 48 - 97% --------- SSA (Ro) SLE 25 - 35% Sjogren's Syndrome 40 - 70% Lupus 100% --------- SSB (La) SLE 10% Sjogren's Syndrome 30% --------- Sm (anti-Duque) SLE 15 - 30% --------- WRECKING [employer]IVER Mixed Connective Tissue Disease 95% (U1 nRNP, SLE 30 - 50% anti-ribonucleoprotein) Polymyositis and/or Dermatomyositis 20% --------- Scl-70 (antiDNA Scleroderma (diffuse) 20 - 35% topoisomerase) Crest 13% --------- Ruby-1 Polymyositis and/or Dermatomyositis 20 - 40% --------- Centromere B Scleroderma - Crest variant 80% 23 Negative <0.80 Equivocal 0.80 - 1.19 Positive >1.19 IgM levels may peak at 3-6 weeks post infection, then gradually decline. Performed at: [facility] [id number] Floor Coverer: Betsy Reynolds MD, Phone: [phone] 24 Method: Sediplast Modified Westergjulio c 25 G47.OO M54.5 E66.9 E28.2 26 Elevated levels of HbA1c suggest the need for more aggressive treatment of glycemia. The [place] Diabetes Association recommends that a primary goal of therapy should be a HbA1c of <7% and that physicians should re-evaluate the treatment regimen in patients with HbA1c values consistently >8%. 27 Note: Persistent reduction for 3 months or more in an eGFR <60 mL/min/1.73 m2 defines CKD. Patients with eGFR values >/=60 mL/min/1.73 m2 may also have CKD if evidence of persistent proteinuria is present. The original MDRD equation for estimated GFR is not valid for patients less than 18 years of age. Additional information may be found at www.kdoqi.org. 28 Method: Sediplast Modified Westergren 29 D68.69 E03.9 30 D68.69 31 ABD PAIN AND DIARRHEA 32 URINE, CLEAN CATCH 33 D68.69 34 NORMAL THROAT MANDIE 35 Z12.4 AND D68.69 36 LARGE PLT'S OBSERVED 37 04/23/17 1333: NEUT% previously reported as: 64.3 % Amended result called to: [] - 04/23/17 at 1333 04/23/17 1333: LYMPH % previously reported as: 28.0 % Amended result called to: [] - 04/23/17 at 1333 04/23/17 1333: MONO % previously reported as: 3.3 L % Amended result called to: [] - 04/23/17 at 1333 04/23/17 1333: EO% previously reported as: 3.9 % Amended result called to: [] - 04/23/17 at 1333 04/23/17 1333: BAS% previously reported as: 0.5 % Amended result called to: [] - 04/23/17 at 1333 38 D47.3 39 D68.69 40 DIZZY,NAUSEA 41 URINE, CLEAN CATCH 42 FIRST MORNING SPECIMENS GENERALLY CONTAIN THE HIGHEST CONCENTRATION OF HCG AND ARE RECOMMENDED FOR EARLY DETECTION OF . Method: Quidel QuickVue One-Step Immunoassay 43 URINE, CLEAN CATCH 44 K76.0 45 Reference Guidelines*: Desirable: ........... < 200 mg/dL Borderline High: ..... 200-239 mg/dL High: ................ >=240 mg/dL * The National Cholesterol Education Program (NCEP) 46 Reference Guidelines*: Normal: ............. < 150 mg/dL Borderline High: .... 150-199 mg/dL High: ............... 200-499 mg/dL Very High: .......... > 500 mg/dL * Source: National Cholesterol Education Program (NCEP) 47 Reference Guidelines*: Low HDL: ..... < 40 mg/dL Normal: ..... 40-60 mg/dL Desirable: ... > 60 mg/dL *The National Cholesterol Education Program(NCEP) 48 Reference Guidelines*: Optimal:........... <100 mg/dL Near Optimal....... 100-129 mg/dL Borderline High.... 130-159 mg/dL High............... 160-189 mg/dL Very High.......... >=190 mg/dL * Source: National Cholesterol Education Program (NCEP) 49 Note: Persistent reduction for 3 months or more in an eGFR <60 mL/min/1.73 m2 defines CKD. Patients with eGFR values >/=60 mL/min/1.73 m2 may also have CKD if evidence of persistent proteinuria is present. The original MDRD equation for estimated GFR is not valid for patients less than 18 years of age. Additional information may be found at www.kdoqi.org. 50 D47.3 51 10/26/15 LAB.TOW De[facility] 52 POSSIBLE UROGENITAL CONTAMINATION. 53 QUERY: Reflex add FT3? Y QUERY: Reflex add FT4? Y 54 Vitamin D deficiency has been defined by the [place] [employer] and an Endocrine Society practice guideline as a level of serum 25-OH vitamin D less than 20 ng/mL (1,2). The Endocrine Society went on to further define vitamin D insufficiency as a level between 21 and 29 ng/mL (2). 1. IOM ([place] [employer]). 2010. Dietary reference intakes for calcium and D. [place]: The National Academies Press. 2. Michael MF, Mary COHN, Angelito NAJERA, et al. Evaluation, treatment, and prevention of vitamin D deficiency: an Endocrine Society clinical practice guideline. JCEM. 2010; 96(7):1911-30. Performed at: RN - [facility] [address] [id number] Floor Coverer: Betsy Reynolds MD, Phone: [phone] 55 10/28/15 (SatOct 28) 12:57 PM GREG VERNON will treat with jose d D3 supplementation 56 Note: Persistent reduction for 3 months or more in an eGFR <60 mL/min/1.73 m2 defines CKD. Patients with eGFR values >/=60 mL/min/1.73 m2 may also have CKD if evidence of persistent proteinuria is present. The original MDRD equation for estimated GFR is not valid for patients less than 18 years of age. Additional information may be found at www.kdoqi.org. 57 Elevated levels of HbA1c suggest the need for more aggressive treatment of glycemia. The [place] Diabetes Association recommends that a primary goal of therapy should be a HbA1c of <7% and that physicians should re-evaluate the treatment regimen in patients with HbA1c values consistently >8%. 58 Organism 1 ! URETHRAL MANDIE Quantity ! > 100,000 CFU/mL SPECIMEN IS A MIX OF GRAM POSITIVE ORGANISMS CONSISTENT WITH SKIN/VAGINAL CONTAMINATION. SUGGEST REPEAT SPECIMEN IF CLINICALLY INDICATED. 59 Performed at: RN - [facility] [address] [id number] Floor Coverer: Betsy Reynolds MD, Phone: [phone] 60 Note: Persistent reduction for 3 months or more in an eGFR <60 mL/min/1.73 m2 defines CKD. Patients with eGFR values >/=60 mL/min/1.73 m2 may also have CKD if evidence of persistent proteinuria is present. The original MDRD equation for estimated GFR is not valid for patients less than 18 years of age. Additional information may be found at www.kdoqi.org. 61 Performed at: RN - [facility] [address] [id number] Floor Coverer: Betsy Reynolds MD, Phone: [phone] 62 Note: Persistent reduction for 3 months or more in an eGFR <60 mL/min/1.73 m2 defines CKD. Patients with eGFR values >/=60 mL/min/1.73 m2 may also have CKD if evidence of persistent proteinuria is present. The original MDRD equation for estimated GFR is not valid for patients less than 18 years of age. Additional information may be found at www.kdoqi.org. 63 Note: Persistent reduction for 3 months or more in an eGFR <60 mL/min/1.73 m2 defines CKD. Patients with eGFR values >/=60 mL/min/1.73 m2 may also have CKD if evidence of persistent proteinuria is present. The original MDRD equation for estimated GFR is not valid for patients less than 18 years of age. Additional information may be found at www.kdoqi.org. 64 Result: NEGATIVE for the JAK2 V617F mutation. Interpretation: The G to T nucleotide change encoding the V617F mutation was not detected. This result does not rule out the presence of the JAK2 mutation at a level below the sensitivity of detection of this assay, or the presence of other mutations within JAK2 not detected by this assay. This result does not rule out a diagnosis of polycythemia vera, essential thrombocythemia or idiopathic myelofibrosis as the V617F mutation is not detected in all patients with these disorders. 65 Vi Ann M.D., Ph.D., [facility] [employer], Molecular Genetics [facility] [place], [place] 66 JAK2 is a cytoplasmic tyrosine kinase with a vasquez role in signal transduction from multiple hematopoietic growth factor receptors. A point mutation within exon 14 of the JAK2 gene ([id number]) encoding a valine to phenylalanine substitution at position 617 of the JAK2 protein (V617F) has been identified in most patients with polycythemia vera, and in about half of those with either essential thrombocythemia or idiopathic myelofibrosis. The V617F has also been detected, although infrequently, in other myeloid disorders such as chronic myelomonocytic leukemia and chronic neutrophilic leukemia. V617F is an acquired mutation that alters a highly conserved valine present in the negative regulatory JH2 domain of the JAK2 protein and is predicted to dysregulate kinase activity. Methodology: Genomic DNA was purified from the provided specimen. Allele-specific PCR using fluorescent primers was used to simultaneously amplify both the wild type and mutant alleles. Amplification products were analyzed by capillary electrophoresis. This assay has a sensitivity to detect approximately a 5% population of cells containing the V617F mutation in a background of non-mutant cells. Reference: Tony A and Rebekah MUELLER. The JAK2 V617F Tyrosine Kinase Mutation in Myeloproliferative Disorders: Status Report and Immediate Implications for Disease Classification and Diagnosis. Javier Clin Proc 2005;80(7):947-958. Performed at: - [facility] [place] [address] [facility], [place], [place] [id number] Floor Coverer: Betsy Reynolds MD, Phone: [phone] Performed at: ANTHONY - [facility], [place], [place] [id number] Floor Coverer: Imelda Matthews MD, Phone: [phone] 67 FEW LRG PLTS SEEN Procedures Date Code Description Status 02/09/2019 17162 Theraputic Or Diagnostic Injection Completed 12/15/2018 50449 Bronchospasm Provocation Evaluation Multi Spirometric Completed Determinati 12/15/2018 82858 Spirometry Completed 10/24/2018 89260 Theraputic Or Diagnostic Injection Completed 08/06/2016 39764 Stress Test Interpre And Report Only Completed 08/06/2016 92667 Stress Test Physician Super Only Completed 08/06/2016 45071 Stress Test Physician Super Only Completed 11/14/2015 27892 Echocardiogram Complete Completed 11/10/2015 09595 EKG-Tracing And Report Completed 02/20/2010 17459 Radiology, Knee 3 Views Completed 09/02/2006 08070 Nasal Endoscopy, Diag. Completed Encounters Type Date Location Provider Dx Diagnosis Office Visit 02/09/2019 Montserrat Pena, G43.111 Migraine with aura, 3:45p Ho Kay MD, PHD intractable, with status migrainosus E66.9 Obesity, unspecified D68.69 Other thrombophilia J01.90 Acute sinusitis, unspecified R30.0 Dysuria Office Visit 01/22/2019 9:30a Shan Pena.Ho Shelby MD, unspecified PHD E28.2 Polycystic ovarian syndrome Z33.1 state, incidental G43.909 Migraine, unsp, not intractable, without status migrainosus Office Visit 12/22/2018 11:30a Margie Pena [place], MD, unspecified PHD E28.2 Polycystic ovarian syndrome J45.31 Mild persistent asthma with (acute) exacerbation R09.02 Hypoxemia R00.0 Tachycardia, unspecified F31.9 Bipolar disorder, unspecified Office Visit 2018 1:00p Family Juarez Adams J45.31 Mild persistent Ho Mariano MD, asthma with PHD (acute) exacerbation R09.02 Hypoxemia R00.0 Tachycardia, unspecified Office Visit 11/20/2018 3:00p Family Adams, S00.521A Blister Medicine Ho Mariano MD, (nonthermal) of Main PHD lip, initial encounter E28.2 Polycystic ovarian syndrome E66.9 Obesity, unspecified E55.9 Vitamin D deficiency, unspecified F31.9 Bipolar disorder, unspecified Office Visit 11/11/2018 9:00a Family Juarez Adams, N39.0 Urinary tract Ho Mariano MD, infection, site PHD not specified J11.1 Flu due to unidentified influenza virus w oth resp manifest J45.31 Mild persistent asthma with (acute) exacerbation E28.2 Polycystic ovarian syndrome R11.0 Nausea Office Visit 10/24/2018 2:45p Family Juarez Adams J06.9 Acute upper Ho Mariano MD, respiratory PHD infection, unspecified J30.2 Other seasonal allergic rhinitis K11.21 Acute sialoadenitis Office Visit 09/19/2018 11:00a Family Juarez Adams J45.31 Mild persistent Ho Mariano MD, asthma with PHD (acute) exacerbation E28.2 Polycystic ovarian syndrome G43.809 Other migraine, not intractable, without status migrainosus D68.69 Other thrombophilia J34.3 Hypertrophy of nasal turbinates E55.9 Vitamin D deficiency, unspecified Office Visit 09/11/2018 9:30a [facility] Montserrat Gonzalez, M54.5 Low back pain Ho Kay MD, PHD E66.9 Obesity, unspecified E28.2 Polycystic ovarian syndrome G47.00 Insomnia, unspecified R06.83 Snoring R51 Headache Office Visit 08/28/2018 3:00p Family Montserrat Gonzalez MD, R30.0 Dysuria [facility] PHD R35.0 Frequency of micturition Office Visit 07/10/2018 2:30p Family Jaicnta Huang, H66.92 Otitis media, West RD PNP-BC, PRECISION MACHINIST, unspecified, left Ibclc ear G43.109 Migraine with aura, not intractable, w/o status migrainosus E28.2 Polycystic ovarian syndrome J01.90 Acute sinusitis, unspecified J45.20 Mild intermittent asthma, uncomplicated E03.9 Hypothyroidism, unspecified F31.9 Bipolar disorder, unspecified Office Visit 06/19/2018 11:15a Family Medicine Jacinta Barrios, M54.5 Low back pain [address] PNP-BC, PRECISION MACHINIST, Ibclc D68.69 Other thrombophilia E03.9 Hypothyroidism, unspecified Office Visit 03/27/2018 9:30a Family Medicine Greg Vernon M.D. M54.5 Low back pain [address] D68.69 Other thrombophilia E66.9 Obesity, unspecified Office Visit 01/23/2018 [facility] Alyx, G43.109 Migraine with 10:30a Medicine CUCA Vicente aura, not RD intractable, w/o status migrainosus F43.0 Acute stress reaction Office Visit 12/27/2017 10:15a [facility] Greg Flores, A08.39 Other viral Ender MARINELLI M.D. enteritis F43.0 Acute stress reaction Office Visit 10/18/2017 1:45p Family Greg Flores, J02.9 Acute pharyngitis, West ISIS M.D. unspecified D68.69 Other thrombophilia Office Visit 07/18/2017 2:00p [facility] Medicine Jacinta Barrios, J30.9 Allergic rhinitis, West RD PNP-BC, PRECISION MACHINIST, unspecified Ibclc J45.20 Mild intermittent asthma, uncomplicated Office Visit 06/28/2017 10:15a Family Greg Flores, D68.69 Other thrombophilia Ender MARINELLI M.D. Office Visit 06/12/2017 11:15a Family Greg Flores, Z00.00 Encntr for general Ender MARINELLI M.D. adult medical exam w/o abnormal findings Z12.4 Encounter for screening for malignant neoplasm of cervix D68.69 Other thrombophilia Z23 Encounter for immunization Office Visit 04/23/2017 Greg Orellana, D68.69 Other thrombophilia 9:30a Juarez Handley M.D. RD Office Visit 02/19/2017 Greg Orellana, D47.3 Essential 9:00a Juarez Handley M.D. (hemorrhagic) RD thrombocythemia Office Visit 01/18/2017 Ruby Orellanaanna, G43.109 Migraine with aura, 10:00a Medicine Ender Sanchez.DDonald not intractable, w/o RD status migrainosus D68.69 Other thrombophilia Office Visit 12/14/2016 9:30a [facility] Greg Vernon, E66.9 Obesity, West RD M.D. unspecified Office Visit 11/08/2016 3:15p [facility] Greg Vernon, E28.[address] M.D. syndrome R07.9 Chest pain, unspecified R09.81 Nasal congestion Office Visit 09/13/2016 3:30p [facility] Greg Vernon, K76.0 Fatty ( change of) West RD M.D. liver, not elsewhere classified Office Visit 07/24/2016 9:00a [facility] Greg Vernon, R07.9 Chest pain, West RD M.D. unspecified F31.9 Bipolar disorder, unspecified D47.3 Essential (hemorrhagic) thrombocythemia E55.9 Vitamin D deficiency, unspecified Office Visit 05/25/2016 9:45a Greg Orellana, J01.90 Acute sinusitis, Medicine Ender M.DDonald unspecified RD Office Visit 02/09/2016 10:45a Greg Orellana, D47.3 Essential Medicine Ender Aguayo (hemorrhagic) RD thrombocythemia E28.2 Polycystic ovarian syndrome F31.9 Bipolar disorder, unspecified R35.0 Frequency of micturition J45.30 Mild persistent asthma, uncomplicated Z91.19 Patient's noncompliance w oth medical treatment and regimen Office Visit 11/10/2015 10:45a [facility] Greg Flores, R07.9 Chest pain, West RD M.D. unspecified K21.9 Gastro-esophageal reflux disease without esophagitis F31.9 Bipolar disorder, unspecified D47.3 Essential (hemorrhagic) thrombocythemia E55.9 Vitamin D deficiency, unspecified R35.0 Frequency of micturition Office Visit 10/26/2015 9:15a [facility] Greg Flores, R35.[address] M.D. micturition R53.83 Other fatigue K21.9 Gastro-esophageal reflux disease without esophagitis F31.9 Bipolar disorder, unspecified Office Visit 08/23/2015 2:00p [facility] Greg Vernon, D47.[address] M.D. (hemorrhagic) thrombocythemia F31.9 Bipolar disorder, unspecified N97.0 Female infertility associated with anovulation Office Visit 06/07/2015 8:20a Oncology Office Iesha Dixon, 289.9 Blood & Blood DO Forming Organs Disease Unspec 719.49 Pain Joint Multiple Sites 278.00 Obesity Unspec Office Visit 05/02/2015 11:30a Oncology Office Joseufal, 289.9 Blood & Blood Iesha, DO Forming Organs Disease Unspec Office Visit 04/22/2015 1:00p Oncology Office Joseufal, 289.9 Blood & Blood Iesha, DO Forming Organs Disease Unspec Office Visit 05/30/2011 2:00p managed services sales consultant Office Cameron Javier, 626.0 Menstruation M.D. 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 Turbinates 477.8 Rhinitis Allergic Due To Other Allergen Office Visit 09/24/2006 3:20p Operating Room Gunner Shrestha, 477.8 Rhinitis Allergic M.D. Due To Other Allergen 478.0 Hypertrophy Nasal Turbinates 470 Deviated Nasal Septum Office Visit 09/02/2006 11:20a Operating Room Gunner Shrestha, 477.8 Rhinitis Allergic M.D. Due To Other Allergen 470 Deviated Nasal Septum 478.0 Hypertrophy Nasal Turbinates Plan of Treatment Future Appointment(s):05/11/2019 10:00 am - Montserrat Adams MD, PHD at [facility]03/26/2019 - Montserrat Adams MD, PHDK11.7 Disturbances of salivary [id number] Unspecified abdominal painNew Labs:Urine Culture, Ordered: 03/26/19Ua RFX Micro & Culture II, Ordered: 03/26/19Chlam/GC/ Trichomonas PCR, Ur, Ordered: 03/26/19L03.212 Acute lymphangitis of faceNew Labs :Mumps Igm Antibody, Ordered: 03/26/19Mumps Antibodies, Igg, Ordered: Respiratory Culture W/Gram St, Ordered: 03/26/19CBC W/Automated Diff, Ordered : 03/26/19Comprehensive Metabolic Panel, Ordered: 03/26/19
[2019-04-11 20:50] VITALS: BP 100/62
--- NOTE | 2019-04-11 20:57 | UC ---
Complaint Female HPI - HPI Summary HPI Summary: 28 yo female with dysuria /urgency and frequency x 4-5 days no f/c chronic low back pain no n/v/d no vag discharge - History Of Current Complaint Chief Complaint: UCGU Stated Complaint: URINARY Time Seen by Provider: 04/11/19 20:56 Hx Obtained From: Patient Hx Last Menstrual Period: 03/11/19 Onset/Duration: Gradual Onset Severity Currently: None Pain Intensity: 0 - pain with urination Pain Scale Used: 0-10 Numeric Character: Burning - Allergies/Home Medications Allergies/Adverse Reactions: Allergies Allergy/AdvReac Type Severity Reaction Status Date / Time ibuprofen Allergy Swelling Verified 04/11/19 20:51 Home Medications: Home Medications Aspirin TAB* [Aspirin 325 MG TAB*] 325 mg PO DAILY 04/11/19 [History Confirmed 04/11/19] Vitamin TAB* 1 tab PO DAILY 04/11/19 [History Confirmed 04/11/19] metFORMIN* [Glucophage 500 MG TAB *] 500 mg PO BID 04/11/19 [History Confirmed 04/11/19] PMH/Surg Hx/FS Hx/Imm Hx Previously Healthy: Yes - Surgical History Surgical History: Yes Surgery Procedure, Year, and Place: R leg surgery. T&A - Social History Alcohol Use: None Substance Use Type: None Smoking Status (MU): Never Smoked Tobacco Review of Systems All Other Systems Reviewed And Are Negative: Yes Constitutional: Positive: Negative Skin: Positive: Negative Eyes: Positive: Negative ENT: Positive: Negative Respiratory: Positive: Negative Cardiovascular: Positive: Negative Gastrointestinal: Positive: Negative Genitourinary: Positive: Negative Motor: Positive: Negative Neurovascular: Positive: Negative Musculoskeletal: Positive: Negative Neurological: Positive: Negative Psychological: Positive: Negative Physical Exam Triage Information Reviewed: Yes Appearance: Well-Appearing, No Pain Distress, Well-Nourished Vital Signs: Initial Vital Signs Temp 97.8 F 04/11/19 20:48 Pulse 91 04/11/19 20:48 Resp 16 04/11/19 20:48 BP 100/62 04/11/19 20:48 Pulse Ox 100 04/11/19 20:48 Vital Signs Reviewed: Yes Eyes: Positive: Conjunctiva Clear ENT: Positive: Hearing grossly normal. Negative: Nasal drainage, TMs normal, Muffled voice, Hoarse voice Respiratory: Positive: Lungs clear, Normal breath sounds, No respiratory distress Cardiovascular: Positive: RRR, No Murmur Abdomen Description: Positive: Nontender, No Organomegaly, Soft. Negative: CVA Tenderness (R), CVA Tenderness (L) Bowel Sounds: Positive: Present Neurological: Positive: Alert Psychological Exam: Normal Skin Exam: Normal Complaint Female Dx - Course Course Of Treatment: urine + leuks, HCG - - Differential Dx/Diagnosis Provider Diagnosis: Dysuria Discharge - Sign-Out/Discharge Documenting (check all that apply): Patient Departure All imaging exams completed and their final reports reviewed: No Studies - Discharge Plan Condition: Stable Disposition: HOME Patient Education Materials: Dysuria (ED) Referrals: Montserrat Adams MD [Primary Care Provider] - Additional Instructions: I suspect a UTI - Billing Disposition and Condition Condition: STABLE Disposition: Home
[2019-04-11] MEDS ORDERED: Cephalexin CAP* 500 MG PO ONE ×2 (21:33)
[2019-04-11] MEDS ORDERED: Phenazopyridine TAB* 100 MG PO ONE ×2 (21:33→21:34)
== END 2019-04-11 22:09 | disposition home or self-care (01) ==
LOC: UCCORT 19:21
DX: R30.0 Dysuria (principal)
CPT/HCPCS: 81003; 84702; 87086; 99203; A9270-GY; G0463